=== PATIENT | male | born 2000 | race Caucasian/White ===

== ENCOUNTER 2020-10-07 10:01 | Emergency (ER) | payer OTHER ==
[~2020-10-07] VITALS: Ht 180.3 cm; Wt 63.1 kg
--- NOTE | 2020-10-07 10:28 | REP ---
INDICATION: SOB. COMPARISON: None. FINDINGS: The superior mediastinal structures are midline. The cardiac silhouette is unremarkable in size, shape, and position. The diaphragmatic surfaces of the lungs are regular, and the costophrenic angles are clear. The pulmonary ruiz are clear. The imaged osseous structures are intact. IMPRESSION: There is no acute cardiopulmonary disease. <Electronically signed by Nael Valenzuela > 10/07/20 1024
[2020-10-07] MEDS ORDERED: MORPHINE 4 MG/ML 1ML VIAL/SYRINGE (J2270) IV ONE (11:15)
[2020-10-07 11:52] LABS: BASO % 0.1 % (0.0-1.0); EOS # 0.1 10^3/uL (0.0-0.5); EOS % 0.7 % (0.0-3.0); HEMATOCRIT 47.7 % (42.0-52.0); HEMOGLOBIN 16.3 g/dl (13.5-17.5); LYMPH # 1.1 10^3/uL (1.5-5.0); LYMPH % 13.1 % (24.0-44.0); MEAN CORPUSCULAR HGB CONC 34.2 g/dl (32.0-36.5); MEAN CORPUSCULAR VOLUME 87.8 fl (80.0-96.0); MONO # 0.8 10^3/uL (0.0-0.8); MONO % 9.9 % (2.0-8.0); NEUTROPHILS # 6.4 10^3/uL (1.5-8.5); NEUTROPHILS % 75.8 % (36.0-66.0); PLATELET COUNT, AUTOMATED 281 10^3/uL (150-450); RED BLOOD COUNT 5.43 10^6/uL (4.30-6.10); WHITE BLOOD COUNT 8.4 10^3/uL (4.0-10.0)
[2020-10-07 12:19] LABS: BLOOD UREA NITROGEN 15 MG/DL (7-18); CALCIUM LEVEL 9.8 MG/DL (8.5-10.1); CARBON DIOXIDE LEVEL 31 MEQ/L (21-32); CHLORIDE LEVEL 102 MEQ/L (98-107); CREATININE FOR GFR 0.83 MG/DL (0.70-1.30); GLUCOSE, FASTING 89 MG/DL (70-100); POTASSIUM SERUM 4.4 MEQ/L (3.5-5.1); SODIUM LEVEL 136 MEQ/L (136-145)
--- NOTE | 2020-10-07 12:23 | REP ---
INDICATION: severe left sided chest pain, spontaneous r/o occult pneumo. COMPARISON: None TECHNIQUE: Limited noncontrast enhanced CT of the chest using standard helical technique FINDINGS: There is a small amount of soft tissue density in the anterior mediastinum slightly splaying the anterior junction line. There is no mediastinal or hilar adenopathy. There are no pleural or pericardial effusions. The imaged upper abdomen and imaged osseous structures are within normal limits. The lung ruiz are clear. IMPRESSION: There is a small amount of soft tissue density in the anterior mediastinum, as described above, likely representing a small amount of residual thymic tissue. The examination is otherwise unremarkable. <Electronically signed by Nael Valenzuela > 10/07/20 [id number]
[2020-10-07] MEDS ORDERED: KETOROLAC 30 MG/ML 1ML VIAL IV ONE (12:55)
[2020-10-07] MEDS ORDERED: NAPR-837 PO (12:58)
[2020-10-07 13:49] VITALS: BP 127/72
--- NOTE | 2020-10-07 19:53 | ECGEPIP ---
[facility] - ED Test Date: 2020-10-07 Pat Name: RADHA RUIZ Department: Room: - Gender: Male Records Supervisor: : [id number] Requested By: ELI García Order Number: [id number] Reading MD: Emani Sofia Measurements Intervals [place] Rate: 84 P: 79 IL: 130 QRS: 85 QRSD: 94 T: 71 QT: 350 QTc: 413 Interpretive Statements Normal sinus rhythm No prior Electronically Signed on 10-07-2020 19:54:11 EDT by Emani Sofia
== END 2020-10-07 13:53 | disposition home or self-care (01) ==
LOC: M ED 10:01 → EDBD 10:01 → M ED 13:53
DX: M94.0 Chondrocostal junction syndrome [Tietze] (principal); E32.8 Other diseases of thymus
CPT/HCPCS: 71046; 71250; 80048; 85025; 86140; 93005; 96374; 96375; 99284; J1885; J2270

== ENCOUNTER 2022-02-07 17:36 | Emergency (ER) | payer OTHER ==
[~2022-02-07] VITALS: Ht 180.3 cm; Wt 68.2 kg
[~2022-02-07 17:36] MED LIST: NAPR-837 PO
[2022-02-07 17:55] VITALS: BP 107/50
== END 2022-02-07 22:45 | disposition left against medical advice (07) ==
LOC: M ED 17:36
DX: Z53.21 Procedure and treatment not carried out due to patient leaving prior to being seen by health care provider (principal)

== ENCOUNTER → 2022-04-17 | Outpatient (REF) | payer OTHER | LOC: M LAB REF 17:23 | PROVIDERS: ATTEND Physician Assistant | DX: J06.9 Acute upper respiratory infection, unspecified (principal); J02.9 Acute pharyngitis, unspecified ==